=== PATIENT | female | born 1960 | race Caucasian/White ===

== ENCOUNTER 2018-06-28 14:51 | Emergency (ER) | payer MEDICARE ==
[2018-06-28] MEDS ORDERED: ONDANSETRON HCL 4 MG TAB.RAPDIS PO STA (15:24)
--- NOTE | 2018-06-28 15:24 | ED Physician Documentation ---
General Adult - HISTORIAN Historian: patient - HPI Stated Complaint: intermittent muscle tension Chief Complaint: General Adult Additional Information: intro self as REQUIREMENTS MANAGER. pt presents to the ED c/o myalgias x 3-4 months. pt reports fever/chills, night sweats, malaise, intermittent nausea. pt reports she recently moved here from [facility] and is changing PCPs. has an appt with dr mary zheng 7. pt reports she is not taking most of her medicine including HTN and anxiety Rx. Pt reports she is taking her Nebs/INH. pt denies current chest pain, dyspnea, syncope/near syncope, headache, dizziness, visual disturbances, v/d, rash, sick contacts, dysuria, trauma. melena or hematochezia, bleeding or easy bruising, change in bowel or bladder function, no recent weight loss/gain, anxiety or depression. ROS Negative unless otherwise specified. - ROS CONST: fever, chills EYES/ENT: nasal drainage, nasal congestion. denies: sore throat CVS/RESP: cough (productive). denies: chest pain, shortness of breath GI/: nausea. denies: abdominal pain, problems urinating, vomiting, diarrhea, black stools MS/SKIN/LYMPH: other (generalized myalgias ) NEURO/PSYCH: anxiety, depression. denies: headache, fainting, dizziness, tingling, numbness, difficulty walking, difficulty with speech - PAST HX Past History: none Other History: none Surgeries/Procedures: Allergies/Adverse Reactions: Allergies Allergy/AdvReac Type Severity Reaction Status Date / Time No Known Allergies Allergy Verified 06/28/18 15:13 Home Medications: Ambulatory Orders Medication Instructions Recorded Albuterol Sulfate [Proair 2 puff IH QID PRN 06/28/18 Respiclick] Budesonide/Formoterol Fumarate 1 puff INH BID 06/28/18 [Symbicort 160-4.5 Mcg Inhaler] - SOCIAL HX Smoking History: less than 1 pack/day Alcohol Use: none Drug Use: none - FAMILY HX Family History: No - VITAL SIGNS Vital Signs: Vital Signs Temp Pulse Resp BP Pulse Ox 99.6 F 95 H 15 131/81 96 06/28/18 15:16 06/28/18 15:16 06/28/18 15:16 06/28/18 15:16 06/28/18 15:16 - REVIEWED ASSESSMENTS Nursing Assessment Reviewed: Yes Vitals Reviewed: Yes ED Results Lab/Radiology - Radiology Radiology Impressions: Report Submission Date: Jun 28, 2018 4:00:50 PM SUPERVISOR LUMP ROOM Patient Study Name: FABIO MEZA Date: Jun 28, 2018 3:19:40 PM SUPERVISOR LUMP ROOM Modality Type: DX Gender: F Description: CHEST : 62 Institution: [facility] Physician: JA KELLER Examination: Portable chest History: Evaluate lungs NIGHT DIAPHORESIS, COUGH, PT STATES HX OF COPD AND SMOKING (Hx) Comparison exam: None provided. Findings: Single view of the chest demonstrates a normal cardiac and mediastinal silhouette. Vascular calcifications involving the aortic arch. Lung robledo without focal infiltrate. Flattening of the diaphragms. Osseous structures are appropriate for age. Impression: No acute appearing pulmonary process. Diaphragmatic flattening. Electronically signed on Jun 28, 2018 4:00:50 PM SUPERVISOR LUMP ROOM by: Josue Mendoza - Orders Orders: ED Orders Category Date Time Status CHEST 1VIEW [RAD] Stat Exams 06/28/18 Ordered CBC/PLATELET/DIFF Stat Lab 06/28/18 15:19 Ordered CMP [CMP] Stat Lab 06/28/18 15:19 Ordered INFLUENZA A&B Stat Lab 06/28/18 Uncollected General Adult Physical Exam - PHYSICAL EXAM GENERAL APPEARANCE: no distress EENT: eye inspection normal, ENT inspection normal, pharynx normal, no signs of dehydration, VICKI, no nystagmus, TM's nml NECK: normal inspection, thyroid normal. No: lymphadenopathy RESPIRATORY: no resp distress, chest non-tender, breath sounds normal CVS: reg rate & rhythm, heart sounds normal, equal pulses, no murmur, no gallop, PMI nml, no JVD, no friction rub, 24 ABDOMEN: soft, no organomegaly, normal bowel sounds, no abdominal bruit, no distension BACK: normal inspection, no CVA tenderness SKIN: normal color, warm/dry, NR, INT, PAL, DR EXTREMITIES: non-tender, normal range of motion, no evidence of injury, no edema, J, REQUIREMENTS MANAGER NEURO: oriented X3, motor nml, sensation nml, mood/affect nml Discharge Clincal Impression: Bronchitis, Myalgia Referrals: Primary Doctor,No [Primary Care Provider] - 2 Days Additional Instructions: Flexeril 10 mg take 1/2 to one tab every 8 hours as needed for muscle spasm. do not drink alcohol or drive, operate machinery with this medication. Azithromycin 250 mg. take 2 tabs day one. one tab days 2-5 keeps working days 6- 10 prednisone taper once daily as directed on label Rest. Stop Smoking you will continue to cough and have infections if you smoke, as well as high cancer risk. take multivitamin daily increase hydration with gatoraid or other electrolyte replacement. use cool humidifier in room you are sleeping. you may sit in bathroom outside hot shower to inhale the steam to soothe lungs seek medical care immediately if difficult to wake, difficulty breathing, feeling faint or fainting, increased rash, chest pain, shortness of breath, or fever not controlled by tylenol/motrin or any concern. follow up with primary care next week or before if not improving as expected. PLEASE UNDERSTAND THAT THIS IS AN EMERGENCY EVALUATION FOR YOUR COMPLAINT AND BY NATURE IS LIMITED AND NOT A SUBSTITUTE FOR ONGOING MEDICAL CARE. EVEN THOUGH TEST RESULTS AND TREATMENT PLAN WERE EXPLAINED THERE MAY BE A NEED FOR ADDITIONAL TESTING TO FULLY DETERMINE THE EXTENT OF YOUR ILLNESS/INJURY/OR CONCERN SO YOU SHOULD CONTACT AND OR ESTABLISH WITH A PRIMARY CARE PROVIDER (OR REFERRAL DOCTOR IF APPLICABLE) FOR AN APPOINTMENT SOON POSSIBLE Condition: Good Disposition: 01 HOME, SELF-CARE Decision to Admit: NO Date of Decison to Admit: 06/28/18 Decision Time: 16:25
[2018-06-28] MEDS ORDERED: ACETAMINOPHEN 500 MG TABLET PO STA (15:25)
[2018-06-28] MEDS ORDERED: IBUPROFEN 200 MG TABLET PO STA (15:25)
[2018-06-28 15:36] LABS: BASOPHILS % 0.4 (0.0-1.5)
[2018-06-28 15:37] LABS: MEAN CORPUSCULAR HEMOGLOBIN 31.2 pg (28.0-34.0); MONOCYTES % 5.3 % (0.0-11.0); NEUTROPHILS # 5.5 # k/uL (1.4-7.7)
[2018-06-28 16:14] LABS: eGFR (Non-African) > 60
--- NOTE | 2018-06-28 16:29 | Diagnostic Imaging Report ---
JA KELLER [facility] [address] [facility] [address] [address] Report Submission Date: Jun 28, 2018 4:00:50 PM CHIEF KNOWLEDGE OFFICER Patient Study Name: FABIO MEZA Date: Jun 28, 2018 3:19:40 PM CHIEF KNOWLEDGE OFFICER Modality Type: DX Gender: F Description: CHEST : 62 Institution: [facility] Physician: JA KELLER Examination: Portable chest History: Evaluate lungs NIGHT DIAPHORESIS, COUGH, PT STATES HX OF COPD AND SMOKING (Hx) Comparison exam: None provided. Findings: Single view of the chest demonstrates a normal cardiac and mediastinal silhouette. Vascular calcifications involving the aortic arch. Lung robledo without focal infiltrate. Flattening of the diaphragms. Osseous structures are appropriate for age. Impression: No acute appearing pulmonary process. Diaphragmatic flattening. Electronically signed on Jun 28, 2018 4:00:50 PM CHIEF KNOWLEDGE OFFICER by: Josue WALLER
[2018-06-28 16:44] VITALS: BP 122/78
== END 2018-06-28 16:40 | disposition home or self-care (01) ==
LOC: ED 14:51
DX: J40 Bronchitis, not specified as acute or chronic (principal); M79.10 Myalgia, unspecified site; Z72.0 Tobacco use
CPT/HCPCS: 36415; 71045; 80053; 85025; 87400; 99282; 99284; A9270; S1016

== ENCOUNTER 2018-07-10 08:40 | Outpatient (CLI) | payer MEDICARE, OTHER ==
--- NOTE | 2018-07-10 13:39 | Diagnostic Imaging Report ---
JSAON LINARES [facility] [address] [facility] [address] [place] [address]. [id number] Report Submission Date: Jul 10, 2018 10:52:21 AM SOFTWARE SYSTEMS ARCHITECT Patient Study Name: FABIO MEZA Date: Jul 10, 2018 10:08:07 AM SOFTWARE SYSTEMS ARCHITECT Modality Type: CT\SR Gender: F Description: CT ABD PELVIS W/ CON : 62 Institution: [facility] Physician: JASON LINARES Examination: CT Abdomen/pelvis History: UNEXPLAINED WEIGHT LOSS X'S 1 MTH, EPIGASTIC PAIN (Hx) Comparison exams: None available Technique: CT Abdomen/pelvis without IV protocol. Findings: Liver demonstrates coarse low attenuation. No obvious central lesion. Gallbladder demonstrates a peripherally calcified gallstone. Spleen, adrenals, pancreas and kidneys are without gross irregularity given exam technique. No suspicious renal calcifications. Ureters difficult to visualize. Bladder margin within normal limits. Abdominal aorta without aneurysm. Peripheral atherosclerotic disease. Cardiac silhouette is not enlarged. No pericardial effusion. No abnormal small bowel dilation. Stool within the large bowel limiting sensitivity. No mesenteric inflammatory changes or free fluid. Appendix is visualized and is without inflammatory changes. Osseous structures demonstrate degenerative spurring. Lung bases demonstrate emphysematous changes without infiltrate. No effusion. Impression: Fatty/coarse liver. No central lesion. Gallstone. No adjacent inflammatory changes. No acute upper abdominal organ inflammatory process. No abnormal bowel dilation or inflammation. Significant large bowel stool - constipation. No suspicious renal calcifications. Lung base emphysematous changes. No consolidation or effusion. Given reported symptoms of weight loss, further dedicated evaluation of the large bowel recommended Electronically signed on Jul 10, 2018 10:52:21 AM SOFTWARE SYSTEMS ARCHITECT by: Josue WALLER
== END 2018-07-10 08:42 ==
LOC: RAD 08:40
PROVIDERS: ATTEND Family Medicine
DX: R10.13 Epigastric pain (principal); R63.4 Abnormal weight loss; G62.9 Polyneuropathy, unspecified; E01.0 Iodine-deficiency related diffuse (endemic) goiter; K76.0 Fatty (change of) liver, not elsewhere classified; K80.80 Other cholelithiasis without obstruction; K59.00 Constipation, unspecified
CPT/HCPCS: 36415; 74177; 82607; 83690; 84443; Q9966; Q9967

== ENCOUNTER 2018-07-23 15:00 | Outpatient (CLI) | payer MEDICARE, OTHER ==
--- NOTE | 2018-07-23 15:36 | Diagnostic Imaging Report ---
JASON LINARES [facility] [address] [facility] [address] Report Submission Date: Jul 23, 2018 3:34:39 PM ASSOCIATE DIRECTOR CAREER SERVICES Patient Study Name: FABIO MEZA Date: Jul 23, 2018 3:03:30 PM ASSOCIATE DIRECTOR CAREER SERVICES Modality Type: DX Gender: F Description: SPINE : 62 Institution: [facility] Physician: JASON LINARES Examination: Cervical spine History: CHRONIC NECK PAIN RADIATING TO BILATERAL SHOULDERS. Comparison exams: None available Findings: 3 views of the cervical spine demonstrate normal height and alignment. No anterior compression. No abnormal listhesis. Multilevel osteophyte formation with disc space narrowing. No odontoid abnormality. No prevertebral abnormality Impression: Multilevel degenerative. No acute appearing osseous abnormality Electronically signed on Jul 23, 2018 3:34:39 PM ASSOCIATE DIRECTOR CAREER SERVICES by: Josue WALLER
--- NOTE | 2018-07-23 15:38 | Diagnostic Imaging Report ---
JASON LINARES [facility] [address] [facility] [address] [address] Report Submission Date: Jul 23, 2018 3:35:50 PM COMPOSING ROOM MACHINIST APPRENTICE Patient Study Name: FABIO MEZA Date: Jul 23, 2018 3:08:20 PM COMPOSING ROOM MACHINIST APPRENTICE Modality Type: DX Gender: F Description: SHOULDER : 62 Institution: [facility] Physician: JASON LINARES Examination: Plain film shoulders History: CHRONIC NECK PAIN RADIATING TO BILATERAL SHOULDERS. Comparison exams: None provided Findings: 3 views of the right and left shoulders demonstrate normal cortical margins. No evidence for fracture or dislocation. Mild chronic theca joint degenerative changes. No soft tissue abnormality Impression: Mild acromioclavicular joint degenerative changes. No acute appearing osseous abnormality. Electronically signed on Jul 23, 2018 3:35:50 PM COMPOSING ROOM MACHINIST APPRENTICE by: Josue WALLER
== END 2018-07-23 15:03 ==
LOC: RAD 15:00
PROVIDERS: ATTEND Family Medicine
DX: M47.22 Other spondylosis with radiculopathy, cervical region (principal); M19.011 Primary osteoarthritis, right shoulder
CPT/HCPCS: 72040